=== PATIENT | male | born 1935 | race Two or more races ===

== ENCOUNTER 2021-07-20 12:26 | Inpatient (IN) | payer OTHER ==
[~2021-07-20] VITALS: Ht 172.7 cm; Wt 62.3 kg
[2021-07-20 13:27] LABS: Basophils # (auto) 0 10 ^3/uL (0-0.2); Eosinophils # (auto) 0 10 ^3/uL (0-0.8); Lymphocytes # (auto) 0.6 10 ^3/uL (0.4-5.4); Neutrophils # (auto) 10.2 10 ^3/uL (1.6-8.6); Neutrophils % (auto) 84.8 % (37.0-80.0)
[2021-07-20 13:29] LABS: Basophils % (auto) 0.2 % (0.0-2.0); Eosinophils % (auto) 0.2 % (0.0-7.0); Hematocrit 29.3 % (41.0-53.0); Hemoglobin 9.6 g/dL (13.5-17.5); Lymphocytes % (auto) 5.2 % (10.0-50.0); Mean Corpuscular Hemoglobin 26.7 pg (28.0-32.0); Mean Corpuscular Hgb Conc. 32.8 g/dL (32.0-36.0); Mean Corpuscular Volume 81.6 fL (80.0-100.0); Monocytes # (auto) 1.2 10 ^3/uL (0-1.3); Monocytes % (auto) 9.6 % (0.0-12.0); Nucleated Red Blood Cells % 0.1 %; Red Blood Cells 3.59 10^6/uL (4.5-5.90); Red Cell Distribution Width 16.9 % (11.8-14.3); White Blood Cell 12.1 10^3/uL (4.4-10.8)
[2021-07-20 13:44] LABS: Albumin 2.6 g/dL (3.4-5.0); BUN/Creatinine Ratio 22.4; Calcium 8.2 mg/dL (8.5-10.1); INR 1.11 (0.9-1.15); Partial Thromboplastin Time 25.1 sec (23.6-33.0)
[2021-07-20 13:46] LABS: Bilirubin, Total 0.2 mg/dL (0.2-1.0); Total Protein 6.1 g/dL (6.4-8.2)
[2021-07-20 15:36] LABS: Urine Bacteria MANY /hpf (None Seen); Urine Blood TRACE /uL (Negative); Urine WBC 564 /hpf (0 - 3)
[2021-07-20] MEDS ORDERED: LACTATED RINGER'S 1,000 ML IV ONE (16:00)
[2021-07-20] MEDS ORDERED: MORPHINE SULFATE INJECTION 2 MG/ML SYRG IV PRN (17:15)
[2021-07-20] MEDS ORDERED: NITROGLYCERIN 0.4 MG SL TAB SL PRN (17:15)
[2021-07-20] MEDS ORDERED: DOCUSATE SOD 100 MG CAP PO PRN (17:15)
[2021-07-20] MEDS ORDERED: ACETAMINOPHEN 325 MG TAB PO PRN (17:15)
[2021-07-20] MEDS ORDERED: ONDANSETRON HCL 4 MG/2 ML VIAL IV PRN (17:15)
[2021-07-20] MEDS: levoFLOXacin 500MG 100 ML IV SCH (20:10)
[2021-07-20] MEDS ORDERED: FURO40TA4 PO (21:36)
[2021-07-20] MEDS ORDERED: METO-289 PO (21:37)
[2021-07-20 21:40] VITALS: BP 113/52
[2021-07-20 21:47] VITALS: BP 115/52
[2021-07-21] VITALS (23 sets, daily range): BP systolic 89–120; BP diastolic 38–58
[2021-07-21 05:24] LABS: Basophils # (auto) 0 10 ^3/uL (0-0.2); Eosinophils # (auto) 0 10 ^3/uL (0-0.8); Hemoglobin 9.2 g/dL (13.5-17.5); Monocytes # (auto) 1.3 10 ^3/uL (0-1.3)
[2021-07-21 05:29] LABS: Basophils % (auto) 0.2 % (0.0-2.0); Hematocrit 28.4 % (41.0-53.0); Lymphocytes % (auto) 7.4 % (10.0-50.0); Mean Corpuscular Hgb Conc. 32.4 g/dL (32.0-36.0); Mean Corpuscular Volume 80.5 fL (80.0-100.0); Monocytes % (auto) 9.2 % (0.0-12.0); Neutrophils # (auto) 11.5 10 ^3/uL (1.6-8.6); Neutrophils % (auto) 83.2 % (37.0-80.0); Red Blood Cells 3.52 10^6/uL (4.5-5.90); Red Cell Distribution Width 16.8 % (11.8-14.3); White Blood Cell 13.8 10^3/uL (4.4-10.8)
[2021-07-21 05:41] LABS: BUN/Creatinine Ratio 25.4; Calcium 8.4 mg/dL (8.5-10.1); Potassium 3.8 mmol/L (3.5-5.1)
[2021-07-21] MEDS ORDERED: TETRACAINE 1% INJ 2 ML VIAL IJ ONE (09:53)
[2021-07-21] MEDS: levoFLOXacin 500MG 100 ML IV SCH (10:00)
[2021-07-21] MEDS: ceFAZolin 1GM/50ML 100 ML IV ONE ×2 (10:02→10:36)
[2021-07-21] MEDS ORDERED: fentaNYL CITRATE 100 MCG/2 ML VL ONE (10:14)
[2021-07-21] MEDS ORDERED: MIDAZOLAM HCL 2MG/2ML 2ml VIAL (1mg/ml) ONE (10:14)
[2021-07-21] MEDS ORDERED: BUPIVACAINE W/ EPINEPH 0.25% INJ 50ML MDV ONE (10:47)
[2021-07-21] MEDS ORDERED: NOREPINEPHRINE 8 MG/250ML KIT 250 ML IV ONE (11:35)
[2021-07-21] MEDS: NOREPINEPHRINE 8 MG/250ML KIT 250 ML IV SCH (11:55)
[2021-07-21] MEDS: ceFAZolin 1GM/50ML 50 ML IV SCH ×2 (12:13→17:56)
[2021-07-21] MEDS ORDERED: PHENYLEPHRINE IV 250 ML IV STA (13:50)
[2021-07-21] MEDS ORDERED: SODIUM CHLORIDE 0.9% 500 ML IV ONE (14:30)
[2021-07-21] MEDS ORDERED: SODIUM CHLORIDE 0.9% 1,000 ML IV SCH (14:45)
[2021-07-21] MEDS: AMIODARONE 450mg/250ml AE 250 ML IV SCH (15:08)
[2021-07-21] MEDS: SODIUM CHLORIDE 0.9% 1,000 ML IV SCH (17:56)
[2021-07-21] MEDS ORDERED: PHENYLEPHRINE IV 250 ML IV ONE (21:56)
[2021-07-22] VITALS (54 sets, daily range): BP systolic 84–125; BP diastolic 35–85
[2021-07-22] MEDS: ceFAZolin 1GM/50ML 50 ML IV SCH (00:23)
[2021-07-22] MEDS: PHENYLEPHRINE IV 250 ML IV SCH ×4 (00:24→22:17)
[2021-07-22 04:15] LABS: Basophils # (auto) 0 10 ^3/uL (0-0.2); Basophils % (auto) 0.2 % (0.0-2.0); Eosinophils # (auto) 0 10 ^3/uL (0-0.8); Eosinophils % (auto) 0.1 % (0.0-7.0); Hematocrit 26.4 % (41.0-53.0); Hemoglobin 8.6 g/dL (13.5-17.5); Lymphocytes % (auto) 4.9 % (10.0-50.0); Mean Corpuscular Hemoglobin 26.1 pg (28.0-32.0); Mean Corpuscular Hgb Conc. 32.5 g/dL (32.0-36.0); Mean Corpuscular Volume 80.3 fL (80.0-100.0); Monocytes # (auto) 2.2 10 ^3/uL (0-1.3); Monocytes % (auto) 10.3 % (0.0-12.0); Neutrophils # (auto) 18.1 10 ^3/uL (1.6-8.6); Neutrophils % (auto) 84.5 % (37.0-80.0); Red Blood Cells 3.28 10^6/uL (4.5-5.90); White Blood Cell 21.4 10^3/uL (4.4-10.8)
[2021-07-22] MEDS: SODIUM CHLORIDE 0.9% 1,000 ML IV SCH (04:47)
[2021-07-22] MEDS: AMIODARONE 450mg/250ml AE 250 ML IV SCH ×2 (04:50→20:40)
[2021-07-22 04:55] LABS: BUN/Creatinine Ratio 25.4; Calcium 7.6 mg/dL (8.5-10.1); Potassium 3.9 mmol/L (3.5-5.1)
[2021-07-22] MEDS ORDERED: LIDOCAINE 2%HCL (LOCAL ANESTH.) INJ 10ml MDV ONE ×2 (09:48→13:27)
[2021-07-22] MEDS: levoFLOXacin 500MG 100 ML IV SCH (10:44)
[2021-07-22] MEDS ORDERED: AMIODARONE HCL 200 MG TAB PO ONE (11:15)
[2021-07-22] MEDS ORDERED: SODIUM CHLORIDE 0.9% 500 ML IV ONE (11:15)
[2021-07-22] MEDS: NOREPINEPHRINE 8 MG/250ML KIT 250 ML IV SCH (11:30)
[2021-07-22] MEDS ORDERED: BUPIVACAINE HCL 0.25% P/F 10 ML VIAL ONE (13:26)
[2021-07-22] MEDS ORDERED: methylPREDNISolone ACETATE 80 MG/ML VL ONE (13:27)
[2021-07-22] MEDS ORDERED: IOHEXOL 350 MG/ML 100ML IJ ONE (13:32)
[2021-07-22] MEDS ORDERED: METOPROLOL TARTRATE 1MG/1ML-5ML VIAL IV ONE (13:42)
[2021-07-22] MEDS ORDERED: NITROGLYCERIN 0.4 MG SL TAB SL ONE (13:42)
[2021-07-22] MEDS: HYDROcodone-ACET 5/325MG TAB PO PRN (15:43)
[2021-07-22] MEDS ORDERED: VANCOMYCIN PER PHARMACY 0 MG IV STA (18:35)
[2021-07-22] MEDS ORDERED: MEROPENEM 1GM IVPB 100 ML IV ONE ×3 (18:45→19:00)
[2021-07-22] MEDS ORDERED: VANCOMYCIN 1GM/250ML 250 ML IV ONE (19:00)
[2021-07-22] MEDS: AMIODARONE HCL 200 MG TAB PO SCH (22:16)
[2021-07-23] VITALS (12 sets, daily range): BP systolic 93–153; BP diastolic 48–79
[2021-07-23 04:36] LABS: Basophils # (auto) 0 10 ^3/uL (0-0.2); Basophils % (auto) 0.1 % (0.0-2.0); Eosinophils # (auto) 0 10 ^3/uL (0-0.8); Eosinophils % (auto) 0.2 % (0.0-7.0); Hemoglobin 7.7 g/dL (13.5-17.5); Lymphocytes # (auto) 0.7 10 ^3/uL (0.4-5.4)
[2021-07-23 04:39] LABS: Hematocrit 24.1 % (41.0-53.0); Lymphocytes % (auto) 5.9 % (10.0-50.0); Mean Corpuscular Hemoglobin 26.3 pg (28.0-32.0); Mean Corpuscular Hgb Conc. 31.8 g/dL (32.0-36.0); Mean Corpuscular Volume 82.6 fL (80.0-100.0); Monocytes % (auto) 7.7 % (0.0-12.0); Neutrophils # (auto) 10.7 10 ^3/uL (1.6-8.6); Neutrophils % (auto) 86.1 % (37.0-80.0); Red Blood Cells 2.92 10^6/uL (4.5-5.90); Red Cell Distribution Width 16.9 % (11.8-14.3); White Blood Cell 12.4 10^3/uL (4.4-10.8)
[2021-07-23 04:51] LABS: BUN/Creatinine Ratio 45.2; Calcium 7.5 mg/dL (8.5-10.1)
[2021-07-23] MEDS ORDERED: MEROPENEM 1GM IVPB 100 ML IV SCH (06:00)
[2021-07-23] MEDS: PHENYLEPHRINE IV 250 ML IV SCH (07:50)
[2021-07-23] MEDS ORDERED: VANCOMYCIN 750mg/250ml 250 ML IV SCH (09:00)
[2021-07-23] MEDS: AMIODARONE HCL 200 MG TAB PO SCH ×2 (09:49→21:53)
[2021-07-23] MEDS: NOREPINEPHRINE 8 MG/250ML KIT 250 ML IV SCH (11:30)
[2021-07-23] MEDS: AMIODARONE 450mg/250ml AE 250 ML IV SCH (11:40)
[2021-07-23] MEDS: AMOXICILLIN/CLAVUL 875 MG TAB PO SCH (22:02)
[2021-07-24] MEDS ORDERED: ASPI-325 PO (00:13)
[2021-07-24] MEDS ORDERED: ALBU108A5 PO (00:13)
[2021-07-24] MEDS ORDERED: POTA10TA32 PO (00:13)
[2021-07-24 05:00] VITALS: BP 111/59
[2021-07-24 06:36] LABS: Basophils # (auto) 0 10 ^3/uL (0-0.2); Basophils % (auto) 0.2 % (0.0-2.0); Eosinophils % (auto) 0.5 % (0.0-7.0); Lymphocytes # (auto) 0.4 10 ^3/uL (0.4-5.4); Monocytes # (auto) 0.8 10 ^3/uL (0-1.3)
[2021-07-24 06:38] LABS: Eosinophils # (auto) 0 10 ^3/uL (0-0.8); Hematocrit 24.5 % (41.0-53.0); Hemoglobin 8.5 g/dL (13.5-17.5); Lymphocytes % (auto) 4.4 % (10.0-50.0); Mean Corpuscular Hemoglobin 27.7 pg (28.0-32.0); Mean Corpuscular Hgb Conc. 34.8 g/dL (32.0-36.0); Mean Corpuscular Volume 79.5 fL (80.0-100.0); Monocytes % (auto) 8.4 % (0.0-12.0); Neutrophils # (auto) 8.6 10 ^3/uL (1.6-8.6); Neutrophils % (auto) 86.5 % (37.0-80.0); Red Blood Cells 3.08 10^6/uL (4.5-5.90); White Blood Cell 9.9 10^3/uL (4.4-10.8)
[2021-07-24] MEDS ORDERED: guaiFENesin 200 MG/10 ML UD GT PRN (08:15)
[2021-07-24 09:04] VITALS: BP 112/63
[2021-07-24 09:05] VITALS: BP 124/68
[2021-07-24] MEDS: AMOXICILLIN/CLAVUL 875 MG TAB PO SCH (09:37)
[2021-07-24] MEDS: AMIODARONE HCL 200 MG TAB PO SCH ×2 (09:38→21:43)
[2021-07-24] MEDS: HYDROcodone-ACET 5/325MG TAB PO PRN (09:38)
[2021-07-24 13:00] VITALS: BP 120/69
[2021-07-24 17:00] VITALS: BP 110/51
[2021-07-24 22:00] VITALS: BP 108/55
[2021-07-25 05:00] VITALS: BP 117/57
[2021-07-25 09:00] VITALS: BP 113/57
[2021-07-25 09:35] LABS: Basophils # (auto) 0 10 ^3/uL (0-0.2); Basophils % (auto) 0.4 % (0.0-2.0); Eosinophils # (auto) 0 10 ^3/uL (0-0.8); Eosinophils % (auto) 0.3 % (0.0-7.0); Lymphocytes # (auto) 0.6 10 ^3/uL (0.4-5.4); Lymphocytes % (auto) 6.9 % (10.0-50.0); Monocytes # (auto) 0.9 10 ^3/uL (0-1.3); Neutrophils # (auto) 7.7 10 ^3/uL (1.6-8.6); White Blood Cell 9.3 10^3/uL (4.4-10.8)
[2021-07-25 09:36] LABS: Hematocrit 26.3 % (41.0-53.0); Hemoglobin 8.5 g/dL (13.5-17.5); Mean Corpuscular Hemoglobin 26.1 pg (28.0-32.0); Mean Corpuscular Hgb Conc. 32.5 g/dL (32.0-36.0); Mean Corpuscular Volume 80.5 fL (80.0-100.0); Monocytes % (auto) 9.7 % (0.0-12.0); Neutrophils % (auto) 82.7 % (37.0-80.0); Red Blood Cells 3.26 10^6/uL (4.5-5.90); Red Cell Distribution Width 16.8 % (11.8-14.3)
[2021-07-25] MEDS: AMIODARONE HCL 200 MG TAB PO SCH (09:56)
[2021-07-25] MEDS ORDERED: CEFTRIAXONE SODIUM 2 GM in D5W 5% 50 ML IV SCH (10:00)
[2021-07-25 13:00] VITALS: BP 126/71
[2021-07-25] MEDS ORDERED: CEPHALEXIN 250 MG CAP PO SCH (14:00)
[2021-07-25 15:07] VITALS: BP 126/71
[2021-07-25] MEDS ORDERED: CEPH500T PO (16:28)
[2021-07-25] MEDS ORDERED: AMIO200T33 PO (16:28)
[2021-07-25] MEDS ORDERED: APIX2.5T PO (16:28)
== END 2021-07-25 17:50 | disposition home health service (06) | DRG 480 ==
LOC: EDBD 12:26 → ER 12:26 → TELE 17:07 → TELE-EAST 21:19 → ICU WEST 07-21 16:46 → TELE-EAST 07-23 15:27
PROVIDERS: ADMIT Internal Medicine; ATTEND Internal Medicine
PROC: 0QS736Z Reposition Left Upper Femur with Intramedullary Internal Fixation Device, Percutaneous Approach (ICD-10-PCS; principal; 2021-07-21 10:04)
PROC: 0W9B3ZZ Drainage of Left Pleural Cavity, Percutaneous Approach (ICD-10-PCS; 2021-07-22)
DX: S72.142A Displaced intertrochanteric fracture of left femur, initial encounter for closed fracture (principal); J96.01 Acute respiratory failure with hypoxia; J18.9 Pneumonia, unspecified organism; J90 Pleural effusion, not elsewhere classified; N39.0 Urinary tract infection, site not specified; J44.0 Chronic obstructive pulmonary disease with (acute) lower respiratory infection; J98.11 Atelectasis; I10 Essential (primary) hypertension; I25.10 Atherosclerotic heart disease of native coronary artery without angina pectoris; I48.91 Unspecified atrial fibrillation; W01.0XXA Fall on same level from slipping, tripping and stumbling without subsequent striking against object, initial encounter; Z20.822 Contact with and (suspected) exposure to COVID-19; Z72.0 Tobacco use; Z95.1 Presence of aortocoronary bypass graft; Y93.89 Activity, other specified; Y92.89 Other specified places as the place of occurrence of the external cause; Y99.8 Other external cause status
CPT/HCPCS: 36415; 70450; 71045; 71250; 71275; 72125; 72192; 73502; 76000; 76604; 76942; 80048; 80053; 81001; 83880; 83986; 84484; 85025; 85379; 85610; 85730; 86850; 86900; 86901; 87077; 87086; 87088; 87186; 87205; 89051; 93306; 93970; 96360; 97110; 97116; 97163; 97530; 99291; A6198; G0378; J0690; J0696; J1956; J2001; J2185; J2250; J3490; J7060